=== PATIENT | female | born 1970 | race Caucasian/White ===

== ENCOUNTER 2018-05-19 04:47 | Emergency (ER) | payer MEDICAID ==
[~2018-05-19] VITALS: Ht 152.4 cm; Wt 52.2 kg
[2018-05-19 04:49] VITALS: BP 132/78
[2018-05-19] MEDS: ASPIRIN 325 MG TAB PO ONE (05:35)
[2018-05-19 05:56] LABS: BASOPHILS % (AUTO) 0.6 % (0.0-2.0); EOSINOPHILS # (AUTO) 0.1 K/uL (0-0.4); EOSINOPHILS % (AUTO) 1.3 % (0.0-4.0); HEMATOCRIT 33.4 % (36-48); HEMOGLOBIN 10.7 g/dL (12.0-16.0); LYMPHOCYTES # (AUTO) 2.1 K/uL (2.5-16.5); MEAN CORPUSCULAR HEMOGLOBIN 23 pg (27-31); MEAN CORPUSCULAR HGB CONC 32 g/dL (33-37); MEAN CORPUSCULAR VOLUME 72.6 fL (80-94); MONOCYTES # (AUTO) 0.4 K/uL (0.8-1.0); MONOCYTES % (AUTO) 5.8 % (1.7-9.3); NEUTROPHILS # (AUTO) 4.2 K/uL (1.8-7.7); NEUTROPHILS % (AUTO) 61.3 % (42.2-75.2); PLATELET COUNT (AUTO) 400 K/uL (140-450); RED BLOOD CELL COUNT(AUTO) 4.59 MIL/uL (4.20-5.40); WHITE BLOOD COUNT (AUTO) 6.8 K/uL (4.8-10.8)
[2018-05-19 06:07] LABS: ANION GAP 11.4 (8-16); CARBON DIOXIDE 29.4 mmol/L (21-32); CREATININE 0.6 mg/dL (0.6-1.3); POTASSIUM 3.8 mmol/L (3.5-5.1)
[2018-05-19 06:13] LABS: ALBUMIN 3.8 g/dL (3.4-5.0); TOTAL BILIRUBIN 0.2 mg/dL (0.0-1.0)
[2018-05-19 06:21] LABS: CREATINE KINASE MB 1.1 ng/mL (0-3.6)
[2018-05-19 06:48] VITALS: BP 104/56
== END 2018-05-19 06:48 | disposition home or self-care (01) ==
LOC: MED 04:47
DX: R07.89 Other chest pain (principal); R06.02 Shortness of breath; K21.9 Gastro-esophageal reflux disease without esophagitis
CPT/HCPCS: 36415; 71045; 80053; 81002; 81025; 82550; 82553; 83690; 84484; 85025; 93005; 99284

== ENCOUNTER 2020-01-12 06:06 | Emergency (ER) | payer MEDICAID ==
[~2020-01-12] VITALS: Ht 149.9 cm; Wt 49.9 kg
[2020-01-12 06:12] VITALS: BP 113/65
--- NOTE | 2020-01-12 06:19 | NUR ---
PT AMBULATED TO CHAIR A WITH STEADY GAIT
--- NOTE | 2020-01-12 06:22 | NUR ---
49 Y/O FEMALE C/O X 2 DAYS LEFT SIDED FACE PAIN WITH BLURRED VISION; OD 20/50, OS 20/50, OU 20/30; DENIES N/V/D; SKIN IS PINK/WARM/DRY; AAOX4 WITH EVEN AND STEADY GAIT; HR EVEN AND REGULAR; PT DENIES ANY FEVER, CP, SOB, OR COUGH AT THIS TIME; PATIENT STATES PAIN OF 4/10 AT THIS TIME; VSS; PATIENT POSITIONED FOR COMFORT IN CHAIR PMH: PT DENIES NKA
--- NOTE | 2020-01-12 06:25 | NUR ---
AT CHAIR SIDE EXAMINING PT
[2020-01-12] MEDS ORDERED: IBUPROFEN 600 MG TAB PO ONE (06:40)
--- NOTE | 2020-01-12 06:56 | NUR ---
AT CHAIR SIDE
[2020-01-12 06:59] VITALS: BP 113/65
== END 2020-01-12 06:59 | disposition home or self-care (01) ==
LOC: MED 06:06
DX: J32.9 Chronic sinusitis, unspecified (principal); H53.8 Other visual disturbances; K21.9 Gastro-esophageal reflux disease without esophagitis
CPT/HCPCS: 99282

== ENCOUNTER 2020-01-17 01:00 | Emergency (ER) | payer MEDICAID ==
--- NOTE | 2020-01-17 01:46 | NUR ---
PATIENT LEFT WITHOUT BEING SEEN BY DR. TEE AND TRIAGED. NO FURTHER CARE PROVIDED FOR PATIENT.
== END 2020-01-17 01:46 | disposition left against medical advice (07) ==
LOC: MED 01:00
DX: R10.9 Unspecified abdominal pain (principal); Z53.21 Procedure and treatment not carried out due to patient leaving prior to being seen by health care provider

== ENCOUNTER 2020-03-25 16:32 | Emergency (ER) | payer MEDICAID ==
[~2020-03-25] VITALS: Ht 147.3 cm; Wt 52.2 kg
[2020-03-25 16:38] VITALS: BP 118/61
[2020-03-25] MEDS ORDERED: ONDANSETRON 4 MG ODT PO ONE (16:55)
[2020-03-25] MEDS ORDERED: MECLIZINE 25 MG TAB PO ONE (16:55)
[2020-03-25] MEDS ORDERED: KETOROLAC 30 MG/ML VIAL IM ONE (16:55)
[2020-03-25 17:19] LABS: BASOPHILS % (AUTO) 0.4 % (0.0-2.0); EOSINOPHILS # (AUTO) 0.2 K/uL (0-0.4); EOSINOPHILS % (AUTO) 1.8 % (0.0-4.0); HEMATOCRIT 33.6 % (36-48); HEMOGLOBIN 10.5 g/dL (12.0-16.0); LYMPHOCYTES # (AUTO) 2.6 K/uL (2.5-16.5); LYMPHOCYTES % (AUTO) 29.3 % (20.5-51.1); MEAN CORPUSCULAR HEMOGLOBIN 23 pg (27-31); MEAN CORPUSCULAR HGB CONC 31 g/dL (33-37); MEAN CORPUSCULAR VOLUME 73.8 fL (80-94); MONOCYTES # (AUTO) 0.5 K/uL (0.8-1.0); MONOCYTES % (AUTO) 5.8 % (1.7-9.3); NEUTROPHILS # (AUTO) 5.5 K/uL (1.8-7.7); NEUTROPHILS % (AUTO) 62.7 % (42.2-75.2); PLATELET COUNT (AUTO) 347 K/uL (140-450); RED BLOOD CELL COUNT(AUTO) 4.55 MIL/uL (4.20-5.40); RED CELL DISTRIBUTION WIDTH 30.5 % (11.6-13.7); WHITE BLOOD COUNT (AUTO) 8.8 K/uL (4.8-10.8)
[2020-03-25 17:23] LABS: APPEARANCE,URINE CLEAR (CLEAR); BILIRUBIN,URINE NEGATIVE (NEGATIVE); BLOOD, URINE 2+ (NEGATIVE); COLOR,URINE ORANGE (YELLOW); LEUKOCYTE ESTERASE ,URINE TRACE (NEGATIVE); NITRITE, URINE NEGATIVE (NEGATIVE); PH,URINE 6.5 (5.0-9.0); UGLUCOSE NEGATIVE (NEGATIVE)
[2020-03-25 17:35] LABS: ALBUMIN 3.7 g/dL (3.4-5.0); CARBON DIOXIDE 26.9 mmol/L (21-32); CREATININE 0.6 mg/dL (0.6-1.3); POTASSIUM 3.9 mmol/L (3.5-5.1); TOTAL BILIRUBIN 0.2 mg/dL (0.0-1.0)
[2020-03-25 18:14] VITALS: BP 110/45
== END 2020-03-25 18:14 | disposition home or self-care (01) ==
LOC: MED 16:32
DX: G44.209 Tension-type headache, unspecified, not intractable (principal); D64.9 Anemia, unspecified; N39.0 Urinary tract infection, site not specified; R42 Dizziness and giddiness; K21.9 Gastro-esophageal reflux disease without esophagitis
CPT/HCPCS: 36415; 80053; 81001; 84484; 85025; 87086; 93005; 99284; J8597; Q0162; J1885

== ENCOUNTER 2020-06-02 14:28 | Emergency (ER) | payer MEDICAID ==
[~2020-06-02] VITALS: Ht 142.2 cm; Wt 50.3 kg
[2020-06-02 14:37] VITALS: BP 125/68
--- NOTE | 2020-06-02 14:40 | NUR ---
Patient ambulated to lobby with steady gait.
[2020-06-02] MEDS ORDERED: KETOROLAC 30 MG/ML VIAL IM ONE (16:25)
--- NOTE | 2020-06-02 16:26 | NUR ---
PT MOVED TO BED 12.
--- NOTE | 2020-06-02 16:43 | NUR ---
PT REFUSED MEDICATION TORADOL AND BENADRYL FOR PAIN. PT STATES "REJI TAKEN TOO MUCH MEDICATION RIGHT NOW AND MY HEAD FEELS NUMB." JABARI STEVEN MADE AWARE.
[2020-06-02 16:47] VITALS: BP 120/75
--- NOTE | 2020-06-02 16:47 | NUR ---
Patient discharged with v/s stable. Written and verbal after care instructions given and explained. Patient alert, oriented and verbalized understanding of instructions. Ambulatory with steady gait. All questions addressed prior to discharge. ID band removed. Patient advised to follow up with PMD. Rx of Naprosyn 375mg given. Patient educated on indication of medication including possible reaction and side effects. Opportunity to ask questions provided and answered.
== END 2020-06-02 16:47 | disposition home or self-care (01) ==
LOC: MED 14:28
DX: G43.909 Migraine, unspecified, not intractable, without status migrainosus (principal); K21.9 Gastro-esophageal reflux disease without esophagitis; R42 Dizziness and giddiness
CPT/HCPCS: 99282; J1885; Q0163

== ENCOUNTER 2020-07-12 06:45 | Emergency (ER) | payer MEDICAID ==
[~2020-07-12] VITALS: Ht 154.9 cm; Wt 49.9 kg
[2020-07-12 06:50] VITALS: BP 109/64
--- NOTE | 2020-07-12 06:50 | NUR ---
TO TENT AMBULATORY
[2020-07-12] MEDS ORDERED: ASPIRIN 81 MG TAB.CHEW PO ONE (07:55)
[2020-07-12] MEDS: KETOROLAC 30 MG/ML VIAL IM ONE ×2 (08:15→08:20)
[2020-07-12 08:34] LABS: BASOPHILS % (AUTO) 0.4 % (0.0-2.0); EOSINOPHILS % (AUTO) 0.7 % (0.0-4.0); HEMATOCRIT 35.1 % (36-48); HEMOGLOBIN 11.3 g/dL (12.0-16.0); LYMPHOCYTES # (AUTO) 0.6 K/uL (2.5-16.5); LYMPHOCYTES % (AUTO) 11.4 % (20.5-51.1); MEAN CORPUSCULAR HEMOGLOBIN 26 pg (27-31); MEAN CORPUSCULAR HGB CONC 32 g/dL (33-37); MEAN CORPUSCULAR VOLUME 79.8 fL (80-94); MONOCYTES # (AUTO) 0.5 K/uL (0.8-1.0); MONOCYTES % (AUTO) 9.3 % (1.7-9.3); NEUTROPHILS # (AUTO) 4.4 K/uL (1.8-7.7); NEUTROPHILS % (AUTO) 78.2 % (42.2-75.2); PLATELET COUNT (AUTO) 363 K/uL (140-450); RED CELL DISTRIBUTION WIDTH 15.9 % (11.6-13.7); WHITE BLOOD COUNT (AUTO) 5.6 K/uL (4.8-10.8)
[2020-07-12 09:03] LABS: ANION GAP 15.5 (8-16); CARBON DIOXIDE 26.4 mmol/L (21-32); CREATININE 0.7 mg/dL (0.6-1.3); POTASSIUM 3.9 mmol/L (3.5-5.1)
[2020-07-12 09:12] LABS: ALBUMIN 4.3 g/dL (3.4-5.0); TOTAL BILIRUBIN 0.3 mg/dL (0.0-1.0)
[2020-07-12 09:44] VITALS: BP 109/64
--- NOTE | 2020-07-12 09:45 | NUR ---
Patient discharged with v/s stable. Written and verbal after care instructions given and explained. Patient alert, oriented and verbalized understanding of instructions. Ambulatory with steady gait. All questions addressed prior to discharge. ID band removed. Patient advised to follow up with PMD. Rx of TRAMADOL AND XANAX given. Patient educated on indication of medication including possible reaction and side effects. Opportunity to ask questions provided and answered.
== END 2020-07-12 09:45 | disposition home or self-care (01) ==
LOC: MED 06:45
DX: R07.81 Pleurodynia (principal); K21.9 Gastro-esophageal reflux disease without esophagitis
CPT/HCPCS: 36415; 71045; 80053; 84484; 85025; 93005; 99285; J1885

== ENCOUNTER 2020-08-17 21:16 | Emergency (ER) | payer MEDICAID ==
[~2020-08-17] VITALS: Ht 147.3 cm; Wt 49.9 kg
[2020-08-17 21:26] VITALS: BP 120/76
--- NOTE | 2020-08-17 21:26 | NUR ---
TO BED AMBULATORY
[2020-08-17] MEDS ORDERED: LIDOCAINE/EPI 1% 1:100000 20 ML VIAL INJ ONE (21:35)
--- NOTE | 2020-08-17 21:48 | NUR ---
Pt c/o REGAN with pain radiating to right side of face x1 day. No deficits noted, no facial droop, BOBBY. Denies other medical hx, denies taking any medications. A/Ox4, VSS. Steady gait.
[2020-08-17] MEDS ORDERED: ACETAMINOPHEN EXTRA STRENGTH 500 MG TAB PO ONE (22:05)
[2020-08-17] MEDS ORDERED: IBUPROFEN 600 MG TAB PO ONE (22:05)
[2020-08-17 23:03] VITALS: BP 120/76
--- NOTE | 2020-08-17 23:03 | NUR ---
Patient discharged with v/s stable. Written and verbal after care instructions given and explained. Patient alert, oriented and verbalized understanding of instructions. Ambulatory with steady gait. All questions addressed prior to discharge. ID band removed. Patient advised to follow up with PMD. Rx of Motrin, Tylenol, and Erythromycin given. Patient educated on indication of medication including possible reaction and side effects. Opportunity to ask questions provided and answered.
== END 2020-08-17 23:03 | disposition home or self-care (01) ==
LOC: MED 21:16
DX: H01.003 Unspecified blepharitis right eye, unspecified eyelid (principal); R51.9 Headache, unspecified; K21.9 Gastro-esophageal reflux disease without esophagitis; Z88.5 Allergy status to narcotic agent
CPT/HCPCS: 99283

== ENCOUNTER 2020-09-23 20:05 | Emergency (ER) | payer MEDICAID ==
[~2020-09-23] VITALS: Ht 152.4 cm; Wt 50.8 kg
[2020-09-23 20:15] VITALS: BP 120/90
--- NOTE | 2020-09-23 20:15 | NUR ---
to bed ambulatory
--- NOTE | 2020-09-23 20:20 | NUR ---
PATIENT AMBUALTED TO RESTROOM WITH STEADY GAIT.
--- NOTE | 2020-09-23 20:22 | NUR ---
PATIENT RETURNED TO BEDSIDE WITH URINE SAMPLE, STEADY GAIT NOTED.
--- NOTE | 2020-09-23 20:25 | NUR ---
PATIENT BIB SELF FOR C/O ABDOMINAL PAIN 12/03 THAT RADIATES TO HER LEFT CHEST AND BILATERAL LOWER BACK X 1 WEEK. PATIENT ALSO REPORTS DIARRHEA X 2 DAYS, WELL PAINFUL URINATION X 2 WEEKS. PER PATIENT SHE TOOK 2 TABLETS OF IBUPROFEN AT HOME 2 HOURS AGO WITH NO RELIEF. DENIES N/V. A & O X4. PATIENT DENIES RESPIRATORY DISTRESS AND COUGH. AMBULATORY WITH STEADY GAIT. ACTIVE BOWEL SOUNDS X4. SKIN IS PINK, WARM AND DRY TO TOUCH. BED IS LOCKED AND IN LOWEST POSITION, X1 BED SIDE RAIL. MED HX: DENIES ALLERGIES: MORPHINE
--- NOTE | 2020-09-23 21:10 | NUR ---
BRAYAN GOODRICH AT BEDSIDE EVLAUATING PATIENT.
[2020-09-23] MEDS ORDERED: ONDANSETRON 4 MG/2 ML VIAL IVP ONE (21:15)
[2020-09-23] MEDS ORDERED: NACL 0.9% 1,000 ML IV SCH (21:15)
[2020-09-23] MEDS ORDERED: ALUMINUM HYD/MAG/SIMETHICONE 30 ML, DICYCLOMINE HCL LIQUID 20 MG, LIDOCAINE VISCOUS 2% ... PO ONE ×3 (21:15)
[2020-09-23] MEDS ORDERED: DICYCLOMINE HCL LIQUID 10 MG/5 ML UDC ONE (21:16)
[2020-09-23] MEDS ORDERED: LIDOCAINE VISCOUS 2% 20 ML UDC ONE (21:16)
[2020-09-23] MEDS ORDERED: ALUMINUM HYD/MAG/SIMETHICONE 30 ML UDC ONE (21:16)
--- NOTE | 2020-09-23 21:32 | NUR ---
PATIENT TAKEN TO CT VIA W.C.
--- NOTE | 2020-09-23 21:38 | NUR ---
BLOOD LABS GIVEN TO ATTILA NICHOLS TECH.
--- NOTE | 2020-09-23 21:42 | NUR ---
PATIENT RETURNED FROM CT VIA W.C.
[2020-09-23 21:58] LABS: BASOPHILS % (AUTO) 0.4 % (0.0-2.0); EOSINOPHILS # (AUTO) 0.1 K/uL (0-0.4); EOSINOPHILS % (AUTO) 1.4 % (0.0-4.0); HEMATOCRIT 33.1 % (36-48); HEMOGLOBIN 10.8 g/dL (12.0-16.0); LYMPHOCYTES # (AUTO) 3.4 K/uL (2.5-16.5); LYMPHOCYTES % (AUTO) 41.9 % (20.5-51.1); MEAN CORPUSCULAR HEMOGLOBIN 24 pg (27-31); MEAN CORPUSCULAR HGB CONC 33 g/dL (33-37); MONOCYTES # (AUTO) 0.6 K/uL (0.8-1.0); MONOCYTES % (AUTO) 7.3 % (1.7-9.3); PLATELET COUNT (AUTO) 359 K/uL (140-450); RED BLOOD CELL COUNT(AUTO) 4.42 MIL/uL (4.20-5.40); RED CELL DISTRIBUTION WIDTH 15.9 % (11.6-13.7); WHITE BLOOD COUNT (AUTO) 8.1 K/uL (4.8-10.8)
[2020-09-23 22:22] LABS: ALBUMIN 4.1 g/dL (3.4-5.0); ANION GAP 11.4 (8-16); CARBON DIOXIDE 27.1 mmol/L (21-32); CREATININE 0.6 mg/dL (0.6-1.3); POTASSIUM 3.5 mmol/L (3.5-5.1)
[2020-09-23 22:26] LABS: TOTAL BILIRUBIN 0.3 mg/dL (0.0-1.0)
[2020-09-23 22:36] LABS: APPEARANCE,URINE CLEAR (CLEAR); BILIRUBIN,URINE NEGATIVE (NEGATIVE); BLOOD, URINE TRACE-I (NEGATIVE); COLOR,URINE YELLOW (YELLOW); LEUKOCYTE ESTERASE ,URINE TRACE (NEGATIVE); NITRITE, URINE NEGATIVE (NEGATIVE); UGLUCOSE NEGATIVE (NEGATIVE)
[2020-09-23 22:39] LABS: RBC,URINE 0-5 /HPF (0-5)
--- NOTE | 2020-09-23 22:41 | NUR ---
PATIENT AMBULATED TO RESTROOM WITH STEADY GAIT.
[2020-09-23] MEDS ORDERED: cefTRIAXone 1,000 MG VIAL ONE (22:54)
[2020-09-23] MEDS ORDERED: CEPH500C16 PO (23:20)
[2020-09-23] MEDS ORDERED: ONDA-24 SL (23:20)
[2020-09-23 23:45] VITALS: BP 120/90
--- NOTE | 2020-09-23 23:45 | NUR ---
Patient discharged with v/s stable. Written and verbal after care instructions given and explained. Patient alert, oriented and verbalized understanding of instructions. Ambulatory with steady gait. All questions addressed prior to discharge. ID band removed. Patient advised to follow up with PMD. Rx of CEPHALEXIN AND ONDANSETRON given. Patient educated on indication of medication including possible reaction and side effects. Opportunity to ask questions provided and answered.
== END 2020-09-23 23:45 | disposition home or self-care (01) ==
LOC: MED 20:05
DX: N39.0 Urinary tract infection, site not specified (principal); K21.9 Gastro-esophageal reflux disease without esophagitis; Z88.5 Allergy status to narcotic agent; Z98.890 Other specified postprocedural states; Z79.899 Other long term (current) drug therapy
CPT/HCPCS: 36415; 74176; 80053; 81001; 81025; 83690; 85025; 87086; 96361; 96365; 99284; J0696; J2405; J7060

== ENCOUNTER 2020-11-30 11:32 | Emergency (ER) | payer MEDICAID ==
[~2020-11-30] VITALS: Ht 162.6 cm; Wt 63.5 kg
[~2020-11-30 11:32] MED LIST: CEPH500C16 PO; ONDA-24 SL
--- NOTE | 2020-11-30 11:34 | NUR ---
PT EMERALDA to bed 07, via sarbjit.
[2020-11-30 11:37] VITALS: BP 120/62
--- NOTE | 2020-11-30 11:47 | NUR ---
49/F biba with c/o head pain, eye pain and dizziness. Per EMS, patient was at her eye doctor this morning where they inserted eye drops that cause eye dilation. Patient states she was not informed she should not or could not drive and drove home after her appointment. Patient states when driving she began feeling head pain and dizziness and began to panic and pulled over to call 911, telling EMS "I think I am having a stroke." Patients eyes appear dilated at this time, complaining of continued dizziness, and eye pain, worsening when she looks down. Patient alert and oriented x4, answering questions appropriately, not complaining of eye blurriness at this time.
[2020-11-30 13:00] VITALS: BP 120/62
--- NOTE | 2020-11-30 13:01 | NUR ---
Patient discharged with v/s stable. Written and verbal after care instructions given and explained. Patient verbalized understanding. Ambulatory with steady gait. All questions addressed prior to discharge. Advised to follow up with PMD.
== END 2020-11-30 13:01 | disposition home or self-care (01) ==
LOC: MED 11:32
DX: H53.9 Unspecified visual disturbance (principal); K21.9 Gastro-esophageal reflux disease without esophagitis; Z79.899 Other long term (current) drug therapy
CPT/HCPCS: 99281

== ENCOUNTER 2021-03-31 09:45 | Emergency (ER) | payer MEDICAID ==
[~2021-03-31] VITALS: Ht 149.9 cm; Wt 51.3 kg
[2021-03-31 09:47] VITALS: BP 125/81
--- NOTE | 2021-03-31 10:16 | NUR ---
50YO F BIBS WITH C/O 4/10 LEFT ARM PAIN, BACK PAIN, HEADACHE, DIZZINESS, MILD CHEST PAIN AND ABDOMINAL PAIN X 3 DAYS. DENIES SOB, COUGH, FEVER, N/V/D. PATIENT A&OX4, VSS, PLACED ON MONITOR FOR CONT EVALUATION. PMH: NONE MEDS: NONE ALLERGY: MORPHINE
--- NOTE | 2021-03-31 10:20 | NUR ---
MD BOLAND AT BEDSIDE EVALUATING PATIENT.
[2021-03-31] MEDS ORDERED: KETOROLAC 30 MG/ML VIAL IM ONE (10:30)
--- NOTE | 2021-03-31 10:44 | NUR ---
EMT AT BEDSIDE FOR EKG.
--- NOTE | 2021-03-31 10:46 | NUR ---
PER ERMD 12 LEAD WAS DONE ON PT AND CAME BACK NSR AT 67 HR.
--- NOTE | 2021-03-31 11:00 | NUR ---
CHARACTER ACTRESS AT BEDSIDE FOR CHEST XRAY
[2021-03-31] MEDS ORDERED: NAPR-54 PO (11:29)
[2021-03-31] MEDS ORDERED: DIAZ5TAB7 PO (11:29)
--- NOTE | 2021-03-31 11:41 | NUR ---
Patient discharged with v/s stable. Written and verbal after care instructions given and explained. Patient alert, oriented and verbalized understanding of instructions. Ambulatory with steady gait. All questions addressed prior to discharge. ID band removed. Patient advised to follow up with PMD. Rx of VALIUM, NAPROXEN given. Patient educated on indication of medication including possible reaction and side effects. Opportunity to ask questions provided and answered.
== END 2021-03-31 11:41 | disposition home or self-care (01) ==
LOC: MED 09:45
DX: R07.89 Other chest pain (principal); M62.830 Muscle spasm of back; K21.9 Gastro-esophageal reflux disease without esophagitis; Z79.899 Other long term (current) drug therapy; Z79.1 Long term (current) use of non-steroidal anti-inflammatories (NSAID); Z79.2 Long term (current) use of antibiotics; Z88.5 Allergy status to narcotic agent
CPT/HCPCS: 71045; 93005; 99283; Q0092; J1885

== ENCOUNTER 2021-06-24 16:13 | Emergency (ER) | payer MEDICAID ==
[~2021-06-24 16:13] MED LIST changes: +DIAZ5TAB8 PO; +NAPR-54 PO; +ONDA-188 SL; -ONDA-24 SL
--- NOTE | 2021-06-24 16:41 | NUR ---
called name no answer at this time
--- NOTE | 2021-06-24 16:48 | NUR ---
pt name called in lobby, no answer
--- NOTE | 2021-06-24 17:07 | NUR ---
PATIENT LEFT WITHOUT BEING SEEN BY DR. BOLAND. NO FURTHER CARE PROVIDED FOR PATIENT.
--- NOTE | 2021-06-24 17:07 | NUR ---
name called no answer at this time lwbs
== END 2021-06-24 17:07 | disposition left against medical advice (07) ==
LOC: MED 16:13
DX: R10.9 Unspecified abdominal pain (principal); Z53.21 Procedure and treatment not carried out due to patient leaving prior to being seen by health care provider

== ENCOUNTER 2021-07-03 05:06 | Emergency (ER) | payer MEDICAID ==
[~2021-07-03] VITALS: Ht 142.2 cm; Wt 53.1 kg
[2021-07-03 05:30] VITALS: BP 137/80
--- NOTE | 2021-07-03 07:14 | NUR ---
SWAB COLLECTED AND GIVEN TO CHANTELLE
--- NOTE | 2021-07-03 07:37 | NUR ---
BIB SELF C/O 10/03 LEFT CP RADIATING TO IRINEO ARM & REGAN , DIZZINESS X AT 1 AM TODAY. HER SON HAS COVID +. PT STATES SHE WAS EXPOSED TO COVID. DENIES COUGH OR SOB OR FEVER.
[2021-07-03 08:08] LABS: ANION GAP 13.2 (8-16); CARBON DIOXIDE 26.8 mmol/L (21-32); CREATININE 0.6 mg/dL (0.6-1.3); TOTAL BILIRUBIN 0.4 mg/dL (0.0-1.0)
[2021-07-03 08:09] LABS: BASOPHILS % (AUTO) 0.4 % (0.0-2.0); EOSINOPHILS # (AUTO) 0.1 K/uL (0-0.4); EOSINOPHILS % (AUTO) 1.2 % (0.0-4.0); HEMATOCRIT 39.9 % (36-48); HEMOGLOBIN 13.8 g/dL (12.0-16.0); LYMPHOCYTES # (AUTO) 1.9 K/uL (2.5-16.5); LYMPHOCYTES % (AUTO) 28.9 % (20.5-51.1); MEAN CORPUSCULAR HEMOGLOBIN 30 pg (27-31); MEAN CORPUSCULAR HGB CONC 35 g/dL (33-37); MEAN CORPUSCULAR VOLUME 86.6 fL (80-94); MONOCYTES # (AUTO) 0.4 K/uL (0.8-1.0); MONOCYTES % (AUTO) 5.7 % (1.7-9.3); NEUTROPHILS # (AUTO) 4.1 K/uL (1.8-7.7); NEUTROPHILS % (AUTO) 63.8 % (42.2-75.2); PLATELET COUNT (AUTO) 375 K/uL (140-450); RED CELL DISTRIBUTION WIDTH 13.7 % (11.6-13.7); WHITE BLOOD COUNT (AUTO) 6.5 K/uL (4.8-10.8)
[2021-07-03 08:42] LABS: PROTHROMBIN TIME 9.6 secs (10.8-13.4)
[2021-07-03 09:52] LABS: D-DIMER < 100 ng/ml (0-400)
--- NOTE | 2021-07-03 11:06 | NUR ---
PT AMB TO ER BED 7
--- NOTE | 2021-07-03 11:17 | NUR ---
PT PAIN FREE AT THIS TIME. NSR W/O ECT NOTED. VVS, PT STABLE
--- NOTE | 2021-07-03 11:28 | NUR ---
50 Y/O F C/O CHEST PAIN 5/10 SINCE THIS MORNING , RADIATES TO HER L ARM. PT WAS SOB AND DIAPHORETIC WHEN THE PAIN BEGAN. PT C/O NAUSEA BUT NO V/D. SHE TOOK TYLENOL AT 1:30 AM THIS MORNING WITH NO RELIEF. ALLERGIES: MORPHINE NPH
[2021-07-03 12:23] VITALS: BP 109/59
--- NOTE | 2021-07-03 12:47 | NUR ---
The patient's care was reviewed and supervised by Lesvia Viera RN.
== END 2021-07-03 12:23 | disposition home or self-care (01) ==
LOC: MED 05:06
DX: R07.9 Chest pain, unspecified (principal); K21.9 Gastro-esophageal reflux disease without esophagitis; Z20.822 Contact with and (suspected) exposure to COVID-19
CPT/HCPCS: 36415; 71045; 80053; 83880; 84484; 85025; 85379; 85610; 85730; 93005; 99285

== ENCOUNTER 2021-07-08 09:11 | Emergency (ER) | payer MEDICAID ==
--- NOTE | 2021-07-08 09:44 | NUR ---
ATTEMPTED TO TRIAGE PT, NO ANSWER IN LOBBY/TENT
--- NOTE | 2021-07-08 09:51 | NUR ---
ATTEMPTED TO TRIAGE PT, NO ANSWER IN LOBBY/TENT
--- NOTE | 2021-07-08 10:04 | NUR ---
FINAL ATTEMPT, NO ANSWER IN LOBBY/TENT. ATTEMPTED TO CALL PT, NUMBER IS NOT WORKING AT THIS TIME. PATIENT LEFT WITHOUT BEING SEEN BY DR. RAINES. NO FURTHER CARE PROVIDED FOR PATIENT.
== END 2021-07-08 09:44 | disposition left against medical advice (07) ==
LOC: MED 09:11
DX: R07.9 Chest pain, unspecified (principal); Z53.21 Procedure and treatment not carried out due to patient leaving prior to being seen by health care provider

== ENCOUNTER 2021-07-13 08:57 | Emergency (ER) | payer MEDICAID ==
[~2021-07-13] VITALS: Ht 121.9 cm; Wt 53.5 kg
--- NOTE | 2021-07-13 09:04 | NUR ---
EKG DONE - EKG SHOWS HR 72; NSR
[2021-07-13 09:54] VITALS: BP 128/73
[2021-07-13] MEDS ORDERED: ONDA8TAB87 PO (10:40)
[2021-07-13] MEDS ORDERED: IBUP-2213 PO (10:40)
[2021-07-13] MEDS ORDERED: ACET-8386 PO (10:40)
[2021-07-13] MEDS ORDERED: ONDANSETRON 4 MG ODT PO ONE (10:40)
--- NOTE | 2021-07-13 11:14 | NUR ---
Patient discharged with v/s stable. Written and verbal after care instructions given and explained. Patient alert, oriented and verbalized understanding of instructions. Ambulatory with steady gait. All questions addressed prior to discharge. ID band removed. Patient advised to follow up with PMD. Rx of ZOFRAN, IBUPROFEN AND HYDROCODNE/ACETAMINOPHEN given. Patient educated on indication of medication including possible reaction and side effects. Opportunity to ask questions provided and answered.
[2021-07-13 11:15] VITALS: BP 128/73
== END 2021-07-13 11:15 | disposition home or self-care (01) ==
LOC: MED 08:57
DX: R51.9 Headache, unspecified (principal); R07.9 Chest pain, unspecified; M54.9 Dorsalgia, unspecified; K21.9 Gastro-esophageal reflux disease without esophagitis; Z98.890 Other specified postprocedural states; Z79.899 Other long term (current) drug therapy; Z88.5 Allergy status to narcotic agent
CPT/HCPCS: 81002; 81025; 99283

== ENCOUNTER 2021-12-02 08:11 | Emergency (ER) | payer MEDICAID ==
[~2021-12-02] VITALS: Ht 143.5 cm; Wt 54.9 kg
[~2021-12-02 08:11] MED LIST changes: +ACET-8386 PO; +IBUP-2213 PO; +ONDA8TAB87 PO
[2021-12-02 08:13] VITALS: BP 107/90
--- NOTE | 2021-12-02 08:20 | NUR ---
PT AMB TO BED 11.
--- NOTE | 2021-12-02 08:30 | NUR ---
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
--- NOTE | 2021-12-02 08:31 | NUR ---
50 Y/O FEMALE BIB SELF C/O CHEST PAIN 5/10 TIGHTNESS RADIATING TO THE LEFT ARM AND BACK TODAY AT 0700. STATED NUMBNESS IN THE LEFT ARM WELL. 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 DENIED ANY NAUSEA/VOMITING/DIARRHEA OR FEVER. RESPIRATIONS EVEN AND UNLABORED. DENIED ANY SOB. DENIED ANY MEDICATION FOR PAIN ALLERGY: MORPHINE PMH: HYPERLIPIDEMIA
--- NOTE | 2021-12-02 08:35 | NUR ---
DR LUCIA AT BEDSIDE FOR FURTHER EVAL
--- NOTE | 2021-12-02 08:54 | NUR ---
RAD AT BEDSIDE
[2021-12-02] MEDS: KETOROLAC 30 MG/ML VIAL IVP ONE ×2 (08:55→09:09)
--- NOTE | 2021-12-02 08:58 | NUR ---
LAB AT BEDSIDE FOR BLOOD DRAW
--- NOTE | 2021-12-02 08:58 | NUR ---
PT REFUSED TORDAL IVP SAYING HER PAIN ISNT THAT BAD ANYWAY, DR LUCIA MADE AWARE, ASKED IF DR STILL WANTED AN IV LINE IN PLACE, STATED THAT WE CAN HOLD OFF ON THE IV SINCE WE'RE NOT GONNA GIVE IV MEDS ANYWAY. ORDERS RECEIVED AND CARRIED OUT
[2021-12-02 09:27] LABS: ALBUMIN 4.2 g/dL (3.4-5.0); ANION GAP 10.1 (8-16); CARBON DIOXIDE 29.6 mmol/L (21-32); CREATININE 0.7 mg/dL (0.6-1.3); POTASSIUM 3.7 mmol/L (3.5-5.1); TOTAL BILIRUBIN 0.6 mg/dL (0.0-1.0)
[2021-12-02 09:35] LABS: BASOPHILS # (AUTO) 0.1 K/uL (0.00-0.22); BASOPHILS % (AUTO) 2.1 % (0.0-2.0); EOSINOPHILS # (AUTO) 0.1 K/uL (0-0.4); EOSINOPHILS % (AUTO) 1.4 % (0.0-4.0); HEMATOCRIT 41.8 % (36-48); HEMOGLOBIN 14.1 g/dL (12.0-16.0); LYMPHOCYTES # (AUTO) 2.1 K/uL (2.5-16.5); LYMPHOCYTES % (AUTO) 36.1 % (20.5-51.1); MEAN CORPUSCULAR HEMOGLOBIN 29 pg (27-31); MEAN CORPUSCULAR HGB CONC 34 g/dL (33-37); MEAN CORPUSCULAR VOLUME 86.2 fL (80-94); MONOCYTES # (AUTO) 0.3 K/uL (0.8-1.0); MONOCYTES % (AUTO) 4.7 % (1.7-9.3); NEUTROPHILS # (AUTO) 3.2 K/uL (1.8-7.7); NEUTROPHILS % (AUTO) 55.7 % (42.2-75.2); PLATELET COUNT (AUTO) 302 K/uL (140-450); RED BLOOD CELL COUNT(AUTO) 4.85 MIL/uL (4.20-5.40); RED CELL DISTRIBUTION WIDTH 14.3 % (11.6-13.7); WHITE BLOOD COUNT (AUTO) 5.8 K/uL (4.8-10.8)
--- NOTE | 2021-12-02 10:04 | NUR ---
PT DENIES CHEST PAIN AT THIS TIME, OFFERED CUP OF WATER
--- NOTE | 2021-12-02 11:24 | NUR ---
PT AMBULATED TO BATHROOM WITH STEADY GAIT
[2021-12-02 12:41] VITALS: BP 112/62
--- NOTE | 2021-12-02 12:42 | NUR ---
Patient discharged with v/s stable. Written and verbal after care instructions ABOUT CHEST PAIN OBSERVATION given and explained. Patient verbalized understanding. Ambulatory with steady gait. All questions addressed prior to discharge. Advised to follow up with PMD.
== END 2021-12-02 12:42 | disposition home or self-care (01) ==
LOC: MED 08:11
DX: R07.9 Chest pain, unspecified (principal); R11.0 Nausea; R06.02 Shortness of breath; E78.5 Hyperlipidemia, unspecified
CPT/HCPCS: 36415; 71045; 80053; 83880; 84484; 85025; 93005; 99285; J1885

== ENCOUNTER 2022-01-06 12:02 | Emergency (ER) | payer MEDICAID ==
[~2022-01-06] VITALS: Ht 149.9 cm; Wt 55.8 kg
[2022-01-06 12:29] VITALS: BP 128/60
--- NOTE | 2022-01-06 12:34 | NUR ---
PT TO WAIT IN LOBBY.
--- NOTE | 2022-01-06 12:40 | NUR ---
51 Y/O FEMALE C/O GENERALIZED ABDOMINAL PAIN 5/10 RADIATING TO SUPRAPUBIC REGION X5DAYS. PT TOOK IBUPROFEN WITH SOME RELIEF. DENIES FEVER/CHILLS. DENIES N/V/D. PMH: HERNIA ALLERGIES: MORPHINE
[2022-01-06 14:33] LABS: BASOPHILS % (AUTO) 0.4 % (0.0-2.0); EOSINOPHILS # (AUTO) 0.1 K/uL (0-0.4); EOSINOPHILS % (AUTO) 1.3 % (0.0-4.0); HEMATOCRIT 40.5 % (36-48); HEMOGLOBIN 13.8 g/dL (12.0-16.0); LYMPHOCYTES # (AUTO) 2.4 K/uL (2.5-16.5); LYMPHOCYTES % (AUTO) 25.8 % (20.5-51.1); MEAN CORPUSCULAR HEMOGLOBIN 30 pg (27-31); MEAN CORPUSCULAR HGB CONC 34 g/dL (33-37); MEAN CORPUSCULAR VOLUME 87.5 fL (80-94); MONOCYTES # (AUTO) 0.5 K/uL (0.8-1.0); MONOCYTES % (AUTO) 5.6 % (1.7-9.3); NEUTROPHILS # (AUTO) 6.2 K/uL (1.8-7.7); NEUTROPHILS % (AUTO) 66.9 % (42.2-75.2); PLATELET COUNT (AUTO) 332 K/uL (140-450); RED BLOOD CELL COUNT(AUTO) 4.63 MIL/uL (4.20-5.40); RED CELL DISTRIBUTION WIDTH 14.3 % (11.6-13.7); WHITE BLOOD COUNT (AUTO) 9.3 K/uL (4.8-10.8)
[2022-01-06 14:51] LABS: ANION GAP 10.7 (8-16); CARBON DIOXIDE 30.3 mmol/L (21-32); CREATININE 0.7 mg/dL (0.6-1.3); TOTAL BILIRUBIN 0.3 mg/dL (0.0-1.0)
[2022-01-06 15:27] VITALS: BP 124/62
[2022-01-06] MEDS ORDERED: IBUP-2213 PO (16:29)
[2022-01-06] MEDS ORDERED: ACET-8386 PO (16:29)
--- NOTE | 2022-01-06 16:43 | NUR ---
Patient discharged with v/s stable. Written and verbal after care instructions given FOR INGUINAL HERNIA and explained. Patient alert, oriented and verbalized understanding of instructions. Ambulatory with steady gait. All questions addressed prior to discharge. ID band removed. Patient advised to follow up with PMD. Rx of IBUPROFEN AND NORCO given. Patient educated on indication of medication including possible reaction and side effects. Opportunity to ask questions provided and answered.
== END 2022-01-06 16:43 | disposition home or self-care (01) ==
LOC: MED 12:02
DX: K46.9 Unspecified abdominal hernia without obstruction or gangrene (principal)
CPT/HCPCS: 36415; 80053; 81002; 81025; 85025; 99284

== ENCOUNTER 2022-02-02 11:39 | Emergency (ER) | payer MEDICAID ==
[~2022-02-02] VITALS: Ht 160 cm; Wt 56.8 kg
[2022-02-02 11:58] VITALS: BP 117/78
--- NOTE | 2022-02-02 12:02 | NUR ---
PT TO AMANDA CRAMER
[2022-02-02] MEDS ORDERED: KETOROLAC 30 MG/ML VIAL IM ONE (12:20)
--- NOTE | 2022-02-02 12:31 | NUR ---
PT AMB TO BED9
[2022-02-02 12:34] LABS: BASOPHILS % (AUTO) 0.4 % (0.0-2.0); EOSINOPHILS # (AUTO) 0.1 K/uL (0-0.4); EOSINOPHILS % (AUTO) 1.6 % (0.0-4.0); HEMATOCRIT 41.1 % (36-48); HEMOGLOBIN 13.9 g/dL (12.0-16.0); LYMPHOCYTES # (AUTO) 2.3 K/uL (2.5-16.5); LYMPHOCYTES % (AUTO) 31.2 % (20.5-51.1); MEAN CORPUSCULAR HEMOGLOBIN 30 pg (27-31); MEAN CORPUSCULAR HGB CONC 34 g/dL (33-37); MEAN CORPUSCULAR VOLUME 88.6 fL (80-94); MONOCYTES # (AUTO) 0.4 K/uL (0.8-1.0); MONOCYTES % (AUTO) 5.9 % (1.7-9.3); NEUTROPHILS # (AUTO) 4.4 K/uL (1.8-7.7); NEUTROPHILS % (AUTO) 60.9 % (42.2-75.2); PLATELET COUNT (AUTO) 323 K/uL (140-450); RED BLOOD CELL COUNT(AUTO) 4.64 MIL/uL (4.20-5.40); RED CELL DISTRIBUTION WIDTH 13.5 % (11.6-13.7); WHITE BLOOD COUNT (AUTO) 7.3 K/uL (4.8-10.8)
--- NOTE | 2022-02-02 12:39 | NUR ---
TRAILER RENTAL CLERK AT BEDSIDE
--- NOTE | 2022-02-02 12:50 | NUR ---
51/F PRESENTS TO ED WITH C/O UPPER BACK PAIN RADIATING TO HER CHEST X3 DAYS. PATIENT DENIES RECENT INJURY OR TRAUMA, REPORTS 6/10 PRESSURE LIKE PAIN. REPORTS TAKING MOTRIN WITH MILD RELIEF, DENIES N/V/D, SOB, FEVERS OR CHILLS.
[2022-02-02 13:19] LABS: ALBUMIN 3.9 g/dL (3.4-5.0); ANION GAP 12.1 (8-16); ASPARTATE AMINOTRANSFERASE 29 U/L (15-37); CARBON DIOXIDE 29.1 mmol/L (21-32); CHLORIDE 102 mmol/L (98-107); CREATININE 0.7 mg/dL (0.6-1.3); GFR ARICAN-AMERICAN 113 mL/min (>90); GLUCOSE 105 mg/dL (74-106); POTASSIUM 4.2 mmol/L (3.5-5.1); SODIUM SERUM 139 mmol/L (136-145); TOTAL BILIRUBIN 0.3 mg/dL (0.0-1.0); UREA NITROGEN, BLOOD 12 mg/dL (7-18)
[2022-02-02] MEDS ORDERED: IBUP-1842 PO (14:08)
[2022-02-02] MEDS ORDERED: LIDO1ADH38 TP (14:16)
[2022-02-02 14:53] VITALS: BP 111/78
--- NOTE | 2022-02-02 14:53 | NUR ---
Patient discharged with v/s stable. Written and verbal after care instructions ABOUT NONSPECIFIC CHEST PAIN AND ACUTE BACK PAIN given and explained. Patient alert, oriented and verbalized understanding of instructions. Ambulatory with steady gait. All questions addressed prior to discharge. ID band removed. Patient advised to follow up with PMD. Rx of MOTRIN 400MG AND LIDOCAINE PATCH given. Patient educated on indication of medication including possible reaction and side effects. Opportunity to ask questions provided and answered.
== END 2022-02-02 14:53 | disposition home or self-care (01) ==
LOC: MED 11:39
DX: M54.6 Pain in thoracic spine (principal); R07.9 Chest pain, unspecified; K21.9 Gastro-esophageal reflux disease without esophagitis; Z88.5 Allergy status to narcotic agent
CPT/HCPCS: 36415; 71045; 80053; 83690; 84484; 85025; 93005; 99285; J1885

== ENCOUNTER 2022-03-26 09:38 | Emergency (ER) | payer MEDICAID ==
[~2022-03-26] VITALS: Ht 142.7 cm; Wt 59.1 kg
[~2022-03-26 09:38] MED LIST changes: +IBUP-1842 PO; +LIDO1ADH38 TP
[2022-03-26 09:40] VITALS: BP 109/62
--- NOTE | 2022-03-26 09:49 | NUR ---
PT AMB TO BED 2.
[2022-03-26 10:45] LABS: APPEARANCE,URINE CLEAR (CLEAR); BILIRUBIN,URINE NEGATIVE (NEGATIVE); BLOOD, URINE TRACE-I (NEGATIVE); COLOR,URINE YELLOW (YELLOW); LEUKOCYTE ESTERASE ,URINE TRACE (NEGATIVE); NITRITE, URINE NEGATIVE (NEGATIVE); UGLUCOSE NEGATIVE (NEGATIVE)
[2022-03-26 11:01] LABS: OTHER CASTS, URINE None Seen /LPF (None Seen); RBC,URINE 0-5 /HPF (0-5); WBC,URINE 0-5 /HPF (0-5)
[2022-03-26] MEDS ORDERED: ALUMINUM HYD/MAG/SIMETHICONE 30 ML UDC PO ONE (11:35)
[2022-03-26 12:23] LABS: BASOPHILS # (AUTO) 0.1 K/uL (0.00-0.22); BASOPHILS % (AUTO) 0.6 % (0.0-2.0); EOSINOPHILS # (AUTO) 0.1 K/uL (0-0.4); EOSINOPHILS % (AUTO) 0.6 % (0.0-4.0); HEMATOCRIT 40.8 % (36-48); HEMOGLOBIN 14.2 g/dL (12.0-16.0); LYMPHOCYTES # (AUTO) 2.2 K/uL (2.5-16.5); MEAN CORPUSCULAR HEMOGLOBIN 31 pg (27-31); MEAN CORPUSCULAR HGB CONC 35 g/dL (33-37); MEAN CORPUSCULAR VOLUME 88.5 fL (80-94); MONOCYTES # (AUTO) 0.4 K/uL (0.8-1.0); MONOCYTES % (AUTO) 4.6 % (1.7-9.3); NEUTROPHILS # (AUTO) 6.1 K/uL (1.8-7.7); NEUTROPHILS % (AUTO) 69.2 % (42.2-75.2); PLATELET COUNT (AUTO) 290 K/uL (140-450); RED BLOOD CELL COUNT(AUTO) 4.61 MIL/uL (4.20-5.40); RED CELL DISTRIBUTION WIDTH 13.4 % (11.6-13.7); WHITE BLOOD COUNT (AUTO) 8.8 K/uL (4.8-10.8)
[2022-03-26 12:39] LABS: ALBUMIN 3.5 g/dL (3.4-5.0); ANION GAP 13.1 (8-16); CARBON DIOXIDE 26.6 mmol/L (21-32); CREATININE 0.5 mg/dL (0.6-1.3); POTASSIUM 3.7 mmol/L (3.5-5.1); TOTAL BILIRUBIN 0.4 mg/dL (0.0-1.0)
[2022-03-26] MEDS ORDERED: MAG355OR2 PO (13:39)
--- NOTE | 2022-03-26 13:59 | NUR ---
Patient discharged with v/s stable. Written and verbal after care instructions given and explained. Patient alert, oriented and verbalized understanding of instructions. Ambulatory with steady gait. All questions addressed prior to discharge. ID band removed. Patient advised to follow up with PMD. Rx of maalox (sent) given. Patient educated on indication of medication including possible reaction and side effects. Opportunity to ask questions provided and answered. copy of labs and us given
[2022-03-26 14:01] VITALS: BP 109/62
== END 2022-03-26 14:01 | disposition home or self-care (01) ==
LOC: MED 09:38
DX: K29.70 Gastritis, unspecified, without bleeding (principal); K21.9 Gastro-esophageal reflux disease without esophagitis; Z88.5 Allergy status to narcotic agent
CPT/HCPCS: 36415; 76705; 80053; 81001; 81003; 83690; 84702; 85025; 99284; Q0092

== ENCOUNTER 2022-08-10 10:04 | Emergency (ER) | payer MEDICAID ==
[~2022-08-10] VITALS: Ht 160 cm; Wt 58.7 kg
[~2022-08-10 10:04] MED LIST changes: -ACET-8386 PO; +ACET-8905 PO; +MAG355OR2 PO
[2022-08-10 10:13] VITALS: BP 139/90
[2022-08-10] MEDS: KETOROLAC 30 MG/ML VIAL IM ONE ×2 (10:45→10:51)
[2022-08-10 10:49] LABS: BASOPHILS % (AUTO) 0.5 % (0.0-2.0); EOSINOPHILS # (AUTO) 0.1 K/uL (0-0.4); EOSINOPHILS % (AUTO) 0.8 % (0.0-4.0); HEMATOCRIT 42.5 % (36-48); HEMOGLOBIN 14.4 g/dL (12.0-16.0); LYMPHOCYTES # (AUTO) 2.8 K/uL (2.5-16.5); LYMPHOCYTES % (AUTO) 38.9 % (20.5-51.1); MEAN CORPUSCULAR HEMOGLOBIN 30 pg (27-31); MEAN CORPUSCULAR HGB CONC 34 g/dL (33-37); MEAN CORPUSCULAR VOLUME 87.6 fL (80-94); MONOCYTES # (AUTO) 0.3 K/uL (0.8-1.0); MONOCYTES % (AUTO) 4.6 % (1.7-9.3); NEUTROPHILS % (AUTO) 55.2 % (42.2-75.2); PLATELET COUNT (AUTO) 296 K/uL (140-450); RED BLOOD CELL COUNT(AUTO) 4.86 MIL/uL (4.20-5.40); RED CELL DISTRIBUTION WIDTH 12.9 % (11.6-13.7); WHITE BLOOD COUNT (AUTO) 7.2 K/uL (4.8-10.8)
[2022-08-10 11:11] LABS: ALBUMIN 4.2 g/dL (3.4-5.0); ANION GAP 13.6 (8-16); CARBON DIOXIDE 28.8 mmol/L (21-32); CREATININE 0.7 mg/dL (0.6-1.3); POTASSIUM 3.4 mmol/L (3.5-5.1); TOTAL BILIRUBIN 0.6 mg/dL (0.0-1.0)
[2022-08-10] MEDS ORDERED: methocarbamoL 500 MG TAB PO STA (11:25)
[2022-08-10] MEDS ORDERED: POTASSIUM CHLORIDE 10 MEQ TABER PO ONE (11:25)
[2022-08-10] MEDS ORDERED: IBUPROFEN 600 MG TAB PO ONE (11:25)
[2022-08-10] MEDS ORDERED: LIDOCAINE 5% 1 EA PATCH TP SCH (11:25)
[2022-08-10] MEDS ORDERED: NAPR-54 PO (13:29)
[2022-08-10] MEDS ORDERED: EMLAC TP (13:29)
[2022-08-10] MEDS ORDERED: POTA10TA70 PO (13:29)
[2022-08-10] MEDS ORDERED: METH-1681 PO (13:29)
[2022-08-10 13:49] VITALS: BP 123/66
== END 2022-08-10 13:49 | disposition home or self-care (01) ==
LOC: MED 10:04
DX: S46.911A Strain of unspecified muscle, fascia and tendon at shoulder and upper arm level, right arm, initial encounter (principal); S39.012A Strain of muscle, fascia and tendon of lower back, initial encounter; R07.9 Chest pain, unspecified; E87.6 Hypokalemia; K21.9 Gastro-esophageal reflux disease without esophagitis; Z88.5 Allergy status to narcotic agent; X58.XXXA Exposure to other specified factors, initial encounter; Y93.89 Activity, other specified; Y92.89 Other specified places as the place of occurrence of the external cause; Y99.8 Other external cause status
CPT/HCPCS: 36415; 71045; 80053; 83880; 84484; 85025; 85379; 99285; J1885

== ENCOUNTER 2022-10-07 08:59 | Emergency (ER) | payer MEDICAID ==
[~2022-10-07] VITALS: Ht 142.2 cm; Wt 58.5 kg
[~2022-10-07 08:59] MED LIST changes: +BEN10 PO; +CEPH-588 PO; +CIPR500T4 PO; +CYCL-711 PO; +DICL1GEL19 TP; +EMLAC TP; +FAMO-90 PO; +FAMO-92 PO; +LID5T TP; +LOPE-289 PO; +MECL-303 PO; +METH-1681 PO; +METO-485 PO; +NITR100C7 PO; +OMEP40EC23 PO; +ONDA-188 PO; +PANT40EC PO; +POTA10TA70 PO; +PYR100 PO; +SIME125T38 PO; +SUCR1TAB35 PO
[2022-10-07 09:07] VITALS: BP 133/68
--- NOTE | 2022-10-07 09:25 | NUR ---
51 Y/O FEMALE BIBA FROM HOME C/O SUDDEN ONSET CP XLAST NIGHT AT 0900 AND THIS AM, WITH 1 EPISODE OF NV YESTERDAY. DENIES ANY VOMITINBG THIS AM, WITH CONTINUED NAUSEA. 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
--- NOTE | 2022-10-07 10:03 | NUR ---
DR GARCIA AT BEDSIDE FOR EVAL
--- NOTE | 2022-10-07 10:36 | NUR ---
X-Ray at bedside.
[2022-10-07 10:41] LABS: BASOPHILS % (AUTO) 0.3 % (0.0-2.0); EOSINOPHILS # (AUTO) 0.1 K/uL (0-0.4); EOSINOPHILS % (AUTO) 0.7 % (0.0-4.0); HEMATOCRIT 42.5 % (36-48); HEMOGLOBIN 14.3 g/dL (12.0-16.0); LYMPHOCYTES # (AUTO) 1.6 K/uL (2.5-16.5); MEAN CORPUSCULAR HEMOGLOBIN 30 pg (27-31); MEAN CORPUSCULAR HGB CONC 34 g/dL (33-37); MEAN CORPUSCULAR VOLUME 88.5 fL (80-94); MONOCYTES # (AUTO) 0.3 K/uL (0.8-1.0); MONOCYTES % (AUTO) 3.6 % (1.7-9.3); NEUTROPHILS # (AUTO) 6.5 K/uL (1.8-7.7); NEUTROPHILS % (AUTO) 76.4 % (42.2-75.2); PLATELET COUNT (AUTO) 304 K/uL (140-450); RED CELL DISTRIBUTION WIDTH 14.5 % (11.6-13.7); WHITE BLOOD COUNT (AUTO) 8.6 K/uL (4.8-10.8)
[2022-10-07 10:55] LABS: PROTHROMBIN TIME 10.2 secs (10.8-13.4)
[2022-10-07 11:01] LABS: ALBUMIN 4.1 g/dL (3.4-5.0); ANION GAP 10.6 (8-16); ASPARTATE AMINOTRANSFERASE 21 U/L (15-37); CARBON DIOXIDE 30.4 mmol/L (21-32); CHLORIDE 103 mmol/L (98-107); CREATININE 0.8 mg/dL (0.6-1.3); GFR ARICAN-AMERICAN 96 mL/min (>90); GLUCOSE 132 mg/dL (74-106); SODIUM SERUM 140 mmol/L (136-145); TOTAL BILIRUBIN 0.5 mg/dL (0.0-1.0); UREA NITROGEN, BLOOD 10 mg/dL (7-18)
[2022-10-07 11:25] VITALS: BP 119/68
--- NOTE | 2022-10-07 11:53 | NUR ---
PT GIVEN CRACKERS AND JUICE
[2022-10-07] MEDS ORDERED: FAMO-92 PO (12:18)
== END 2022-10-07 12:29 | disposition home or self-care (01) ==
LOC: MED 08:59
DX: R07.89 Other chest pain (principal); E78.5 Hyperlipidemia, unspecified; F32.9 Major depressive disorder, single episode, unspecified; K21.9 Gastro-esophageal reflux disease without esophagitis; F43.9 Reaction to severe stress, unspecified; Z98.890 Other specified postprocedural states; Z79.899 Other long term (current) drug therapy; Z79.2 Long term (current) use of antibiotics; Z79.1 Long term (current) use of non-steroidal anti-inflammatories (NSAID); Z91.018 Allergy to other foods; Z88.5 Allergy status to narcotic agent
CPT/HCPCS: 36415; 71045; 80053; 84484; 85025; 85610; 85730; 93005; 99285

== ENCOUNTER 2023-01-25 16:50 | Emergency (ER) | payer MEDICAID ==
[~2023-01-25] VITALS: Ht 144.8 cm; Wt 58.1 kg
[2023-01-25 17:05] VITALS: BP 129/73; PULSE 90; RESP 20; TEMP 98; O2SAT 100
--- NOTE | 2023-01-25 17:25 | NUR ---
Dr. Craft evaluating patient at bedside.
--- NOTE | 2023-01-25 17:40 | NUR ---
52 y/o female bib self with c/o chest pain x today. Patient also reports low back pain x 4 days. Patient has had increased weakness x 4 days. Patient saw PCP and was noted with an UTI, antibiotic were prescribed. Patient reports pressure pain from chest to left arm. Denies any SOB. Patient reports a fever, that was medicated with Motrin. Also reports nausea. Denies any vomiting or diarrhea. Medical History: Denies ALLERGY: MORPHINE
[2023-01-25] MEDS ORDERED: DICYCLOMINE HCL LIQUID 20 MG, ALUMINUM HYD/MAG/SIMETHICONE 30 ML, LIDOCAINE VISCOUS 2% ... PO ONE ×3 (17:45)
[2023-01-25 17:50] LABS: BASOPHILS % (AUTO) 0.3 % (0.0-2.0); EOSINOPHILS # (AUTO) 0.1 K/uL (0-0.4); EOSINOPHILS % (AUTO) 1.9 % (0.0-4.0); HEMATOCRIT 40.7 % (36-48); LYMPHOCYTES # (AUTO) 2.5 K/uL (2.5-16.5); LYMPHOCYTES % (AUTO) 32.7 % (20.5-51.1); MEAN CORPUSCULAR HEMOGLOBIN 30 pg (27-31); MEAN CORPUSCULAR HGB CONC 35 g/dL (33-37); MEAN CORPUSCULAR VOLUME 87.9 fL (80-94); MONOCYTES # (AUTO) 0.4 K/uL (0.8-1.0); MONOCYTES % (AUTO) 5.1 % (1.7-9.3); NEUTROPHILS # (AUTO) 4.6 K/uL (1.8-7.7); PLATELET COUNT (AUTO) 296 K/uL (140-450); RED BLOOD CELL COUNT(AUTO) 4.63 MIL/uL (4.20-5.40); WHITE BLOOD COUNT (AUTO) 7.7 K/uL (4.8-10.8)
[2023-01-25] MEDS ORDERED: ALUMINUM HYD/MAG/SIMETHICONE 30 ML UDC ONE (18:05)
[2023-01-25] MEDS ORDERED: DICYCLOMINE HCL LIQUID 10 MG/5 ML UDC ONE (18:05)
[2023-01-25 18:28] LABS: APPEARANCE,URINE CLEAR (CLEAR); BILIRUBIN,URINE NEGATIVE (NEGATIVE); BLOOD, URINE 1+ (NEGATIVE); COLOR,URINE YELLOW (YELLOW); LEUKOCYTE ESTERASE ,URINE TRACE (NEGATIVE); NITRITE, URINE NEGATIVE (NEGATIVE); UGLUCOSE NEGATIVE (NEGATIVE)
[2023-01-25 18:31] LABS: ALBUMIN 3.9 g/dL (3.4-5.0); ANION GAP 14.1 (8-16); CARBON DIOXIDE 26.3 mmol/L (21-32); CREATININE 0.7 mg/dL (0.6-1.3); POTASSIUM 3.4 mmol/L (3.5-5.1); TOTAL BILIRUBIN 0.3 mg/dL (0.0-1.0)
[2023-01-25 18:38] LABS: TRICHOMONAS,URINE None Seen /HPF (None Seen); YEAST,URINE None Seen /HPF (None Seen)
[2023-01-25] MEDS ORDERED: NITR100C7 PO (19:10)
[2023-01-25] MEDS ORDERED: OMEP20EC11 PO (19:10)
--- NOTE | 2023-01-25 19:21 | NUR ---
Report given to SUMAYA Clemens for transfer of care.
[2023-01-25 19:59] VITALS: BP 109/78; PULSE 80; RESP 12; TEMP 98; O2SAT 98
--- NOTE | 2023-01-25 20:00 | NUR ---
Patient discharged with v/s stable. Written and verbal after care instructions given and explained. Patient alert, oriented and verbalized understanding of instructions. Ambulatory with steady gait. All questions addressed prior to discharge. ID band removed. Patient advised to follow up with PMD. Rx of MACROBID, OMEPRAZOLE given. Patient educated on indication of medication including possible reaction and side effects. Opportunity to ask questions provided and answered.
== END 2023-01-25 20:00 | disposition home or self-care (01) ==
LOC: MED 16:50
DX: R07.89 Other chest pain (principal); N39.0 Urinary tract infection, site not specified; K29.70 Gastritis, unspecified, without bleeding; K21.9 Gastro-esophageal reflux disease without esophagitis; Z88.5 Allergy status to narcotic agent; Z79.899 Other long term (current) drug therapy
CPT/HCPCS: 36415; 71045; 80053; 81001; 81025; 83880; 84484; 85025; 93005; 99285

== ENCOUNTER 2023-02-17 11:21 | Emergency (ER) | payer MEDICAID ==
[~2023-02-17 11:21] MED LIST changes: +OMEP20EC11 PO
== END 2023-02-17 12:28 | disposition left against medical advice (07) ==
LOC: MED 11:21
DX: Z53.21 Procedure and treatment not carried out due to patient leaving prior to being seen by health care provider (principal)